=== PATIENT | male | born 1970 ===

== ENCOUNTER 2018-02-14 08:18 | Outpatient (CLI) | payer BC ==
--- NOTE | 2018-02-14 11:16 | ULT ---
RENAL SONOGRAM: Date: 02-14-18 History: Calculus of kidney. Comparison: None available. FINDINGS: Kidneys demonstrate a normal sonographic appearance bilaterally without evidence of renal mass, renal calculus or hydronephrosis. The right kidney measures 11.5 cm x 6.3 cm with the left kidney measurin g 11.4 cm x 6.3 cm. Urinary bladder is partially distended and has a normal appearance. No significant post void residual is present. Pre void urinary bladder volume is 102.2 ml with post void urinary bladder volume of 5.9 ml. IMPRESSION: Normal appearing bilateral kidneys without evidence of hydronephrosis. POS: [facility]
== END 2018-02-14 08:19 | disposition home or self-care (01) ==
LOC: ULT 08:18
PROVIDERS: ATTEND Family Medicine
DX: N20.0 Calculus of kidney (principal)
CPT/HCPCS: 76770